=== PATIENT | female | born 1970 | race Caucasian/White ===

== ENCOUNTER 2021-07-26 00:30 | Day surgery (SDC) | payer OTHER, SELFPAY ==
[2021-07-14 11:59] VITALS: BMI 29.2
[2021-07-26 10:09] VITALS: BP 109/83; PULSE 92; RESP 18; TEMP 37.1; O2SAT 100; BMI 29.5
[2021-07-26] MEDS: LACTATED RINGERS 1,000 ML 150 ML IV CONT (10:20)
--- NOTE | 2021-07-26 10:43 | P.PNAN_ITS ---
Anes - Initial Pre Proc Eval Procedure: Operation Date: 07/26/21 11:30 Proposed Procedures p Screening Colonoscopy - Keenan Feliz MD Date/Time: 07/26/21 10:43 Surgeon: Keenan Feliz MD Pre Op Diagnosis: neoplasm screeing Patient Data Age: 50 Gender: F Height: 1.68 m Weight: 83 kg Last Vital Signs Temp 98.8 F 07/26/21 10:09 Pulse 92 07/26/21 10:09 Resp 18 07/26/21 10:09 BP 109/83 07/26/21 10:09 Pulse Ox 100 07/26/21 10:09 Allergies Allergy/AdvReac Type Severity Reaction Status Date / Time No Known Allergies Allergy Mild Verified 07/26/21 10:08 Home Medications Medication Instructions Recorded Confirmed Type losartan 50 mg PO DAILY 07/14/21 07/14/21 History multivit with min-folic acid 1 tablet PO DAILY 07/14/21 07/14/21 History [Adult One Daily Multivitamin] trazodone 100 mg PO HS 07/14/21 07/14/21 History Patient hx anesthesia problems: none Family hx anesthesia problems: none [facility] Past Medical History Medical History (Updated 07/26/21 @ 10:42 by Denton Deras MD) Anxiety Depression Hypertension Social History Social History Smoking status: Never smoker Alcohol intake: current Drinks per week: 3 Living arrangements: with family Spiritual care concerns: No Anes - Eval Final PreProcedure Day of Procedure 07/26/21 10:43 Patient weight: overweight Heart: regular rate and rhythm Lungs: clear to auscultation Airway: Mallampati scale class II Neurological: alert and oriented Last oral intake: >/= 8 hours ASA classification: II Emergent: no Anesthetic plan: proceed Anesthesia type and monitoring: general GIVS and standard monitoring Informed Consent: The patient's anesthetic plan and its attendant risks and benefits were discussed with the patient/family/POA. Questions were solicited and answers provided to the satisfaction of the patient/family/POA.
--- NOTE | 2021-07-26 10:55 | WPDGICN ---
Assessment and Plan Assessment and plan (1) Family history of colonic polyps: Code(s): Z83.71 - Family history of colonic polyps Status: Acute Assessment and Plan: Patient has a family history of colon polyps in her father. Plan is for screening colonoscopy now and consider this at 5 year intervals in the future. GI Consult Note Consult date/time: 07/26/21 10:55 HPI: Cara Omer is a 50 year old female Presents for screening colonoscopy. Patient reports that her weight appetite and bowel movements are normal. Patient denies abdominal pain. She has had no bleeding. Family history is significant that her father had colon polyps. Patient presents today for neoplasia screening. Review of Systems Review of Systems: All systems reviewed & are unremarkable except as noted in HPI and below PMFSH Past Medical History Medical History (Updated 07/26/21 @ 10:57 by Keenan Feliz MD) Anxiety Depression Hypertension Social History Social History Smoking status: Never smoker Alcohol intake: current Drinks per week: 3 Living arrangements: with family Spiritual care concerns: No Meds Home Medications and Allergies Home Medications Medication Instructions Recorded Confirmed Type losartan 50 mg PO DAILY 07/14/21 07/14/21 History multivit with min-folic acid 1 tablet PO DAILY 07/14/21 07/14/21 History [Adult One Daily Multivitamin] trazodone 100 mg PO HS 07/14/21 07/14/21 History Allergies Allergy/AdvReac Type Severity Reaction Status Date / Time No Known Allergies Allergy Mild Verified 07/26/21 10:08 Vital Signs Vital Signs - 24 hr 07/26/21 10:09 Temperature 98.8 F Pulse Rate 92 Respiratory Rate 18 Blood Pressure 109/83 Pulse Oximetry 100 Exam Narrative: Physical exam reveals patient be alert. Vital signs stable. HEENT exam is unremarkable. Patient is anicteric. Lungs are clear to auscultation and percussion. Heart is without murmur or extra sounds. Abdominal exam bowel sounds are present soft nontender with no organomegaly. Digital external rectal exam is normal.
[2021-07-26 12:12] VITALS: BP 97/52; PULSE 73; RESP 18; O2SAT 99
[2021-07-26 12:22] VITALS: BP 90/58; PULSE 79; RESP 24; O2SAT 100
[2021-07-26 12:32] VITALS: BP 103/64; PULSE 69; RESP 18; O2SAT 100
== END 2021-07-26 12:42 | disposition home or self-care (01) ==
PROVIDERS: PCP Nurse Practitioner Adult Health; Visit Provider Internal Medicine Gastroenterology
PROC: 0DJD8ZZ Inspection of Lower Intestinal Tract, Via Natural or Artificial Opening Endoscopic (ICD-10-PCS; CPT 45378; principal; 2021-07-26 11:30)
DX: Z12.11 Encounter for screening for malignant neoplasm of colon (principal); K64.8 Other hemorrhoids; Z83.71 Family history of colonic polyps; I10 Essential (primary) hypertension; F41.8 Other specified anxiety disorders
CPT/HCPCS: 45378; J2001; J2704; J7120

== ENCOUNTER 2024-04-03 08:04 | Emergency (ER) | payer OTHER, SELFPAY ==
[2024-04-03 08:14] VITALS: BP 107/80; PULSE 75; RESP 18; TEMP 36.4; O2SAT 100
--- NOTE | 2024-04-03 08:20 | ED.EAR ---
HPI - Ear Problem General Chief complaint: Ear Stated complaint: lt ear pain Time Seen by Provider: 04/03/24 08:20 Source: patient Mode of arrival: ambulatory Limitations: no limitations History of Present Illness HPI Narrative: 53 y/o female presented for c/o left ear pain x2 days and bloody drainage since yesterday. States the ear pain started while in [place] [employer] The bloody drainage started last night after air travel home. Continues to have bloody drainage today and decreased hearing. Denies tinnitus, dizziness, n/v/d/f/c. Used otocare drops from the [place] x2 days (clotrimazole, lidocaine, beclomethasone, and chloramphenicol). MD Complaint: ear pain Related Data Home Medications Medication Instructions Recorded Confirmed losartan 50 mg tablet 50 mg PO DAILY 07/14/21 07/14/21 multivitamin with minerals-folic 1 tablet PO DAILY 07/14/21 07/14/21 acid 0.4 mg tablet trazodone 100 mg tablet 100 mg PO HS 07/14/21 07/14/21 alprazolam 0.5 mg tablet mg 04/03/24 latanoprost 0.005 % eye drops drp 04/03/24 Allergies Allergy/AdvReac Type Severity Reaction Status Date / Time No Known Allergies Allergy Mild Verified 04/03/24 08:15 Review of Systems Review of Systems: CONSTITUTIONAL: Denies malaise, chills, or fever. EYES: Denies visual changes, redness, or discharge. ENT: Denies rhinorrhea, congestion, sinus pain, sore throat. Reports left ear pain and drainage CARDIOVASCULAR: Denies chest pain, palpitations, or edema. RESPIRATORY: Denies cough or dyspnea. GASTROINTESTINAL: Denies abdominal pain, nausea, vomiting, diarrhea SKIN: Denies rash or itching. NEUROLOGIC: Denies headache. All systems reviewed & are unremarkable except as noted in HPI and below PMFSH Past Medical History Medical History Anxiety Depression Hypertension Social History Social History Smoking status: Never smoker Alcohol intake: current Drinks per week: 3 Living arrangements: with family Spiritual care concerns: No Comments At time of signature, agree with nursing past medical, surgical, social and family history. There is no relevant family history pertinent to the presenting complaint Exam Narrative: GENERAL: Appears in pain, in no acute distress. ENT: Nares clear. Mucous membranes moist. Right TM pearly ortiz with dull light reflex; left TM unable to visualize due large amount bloody drainage in canal; core machine tender, with left tragal tenderness. Oropharynx not erythematous without lesions. NECK: Supple. No lymphadenopathy CHEST: Clear to auscultation, breath sounds equal. SKIN: Warm, dry NEURO: Alert and oriented x3. PSYCH: Normal mood and affect Course Course Emergency Course: Patient is aware of diagnosis, understands and agrees to treatment plan. Anticipatory guidance given. Patient agrees to follow-up as directed and is aware of reasons to seek care at the emergency department. Portions of this record may have been created with voice recognition software Level of Care: Express Care Visit Vital Signs Vital signs: Vital Signs Temperature 97.5 F L 04/03/24 08:14 Pulse Rate 75 04/03/24 08:14 Respiratory Rate 18 04/03/24 08:14 Blood Pressure 107/80 04/03/24 08:14 Pulse Oximetry 100 04/03/24 08:14 Oxygen Delivery Room Air 04/03/24 08:14 Temperature 97.5 F L 04/03/24 08:14 Pulse Rate 75 04/03/24 08:14 Respiratory Rate 18 04/03/24 08:14 Blood Pressure 107/80 04/03/24 08:14 Pulse Oximetry 100 04/03/24 08:14 Oxygen Delivery Room Air 04/03/24 08:14 Reviewed Medical Decision Making [facility] Narrative Medical decision making narrative: Pt presented with left ear pain x2 days and bloody drainage since yesterday. Unable to visualize TM, suspect TM rupture. Contacted Dr Perez for f/u, he recommends Ci
== END 2024-04-03 08:51 | disposition home or self-care (01) ==
PROVIDERS: Emergency Provider Nurse Practitioner Family
DX: H92.02 Otalgia, left ear (principal); I10 Essential (primary) hypertension; F32.A Depression, unspecified
CPT/HCPCS: 99213; G0463

== ENCOUNTER 2024-05-21 09:24 | Outpatient (CLI) | payer OTHER, SELFPAY ==
[2024-05-21 20:14] LABS: Appearance Urine Clear (Clear); Bacteria Urine None Seen /hpf; Bilirubin Urine Negative (Negative); Blood Urine Negative (Negative); Color Urine Yellow (Yellow); Glucose Urine UA Negative (Negative); Ketones Urine Negative (Negative); Leukocyte Esterase Ur Trace LEU/UL (Negative); Nitrate Urine Negative (Negative); Non Pathogenic Casts 0-2; Protein Urine Negative (Negative); RBC Urine 0-2 /hpf (0-2); Specific Grav Ur 1.005 (1.001-1.035); Squamous Epithelial Cell Urine None Seen /hpf (Few); Urobilinogen Urine 0.2 mg/dL (<2.0); WBC Urine 0-5 /hpf (0-3)
[2024-05-21 20:22] LABS: Add Urine Microscopic? YES
== END 2024-05-21 09:25 | disposition home or self-care (01) ==
LOC: ANHBWCLAB 09:25
PROVIDERS: PCP Nurse Practitioner Adult Health; Visit Provider Nurse Practitioner Adult Health
DX: R39.9 Unspecified symptoms and signs involving the genitourinary system (principal)
CPT/HCPCS: 81001; 87077; 87086; 87147; 87181; 87186

== ENCOUNTER 2024-11-24 07:51 | Outpatient (CLI) | payer OTHER, SELFPAY ==
--- NOTE | ~2024-11-24 | XR_ITS ---
XR abdomen/kub 1V 11/24/2024 08:10 INDICATION: Hematuria TECHNIQUE: KUB COMPARISON: None FINDINGS: Bowel gas pattern is normal. Moderate colonic fecal loading. There is no evidence of free a ir, mass, organomegaly, ascites or obstruction. No abnormal calculi are seen. The bones appear inta ct. IMPRESSION: 1: No acute abdominal abnormality identified. Reviewed, dictated and finalized at location [facility]. [facility]
[2024-11-24 20:01] LABS: Add Urine Microscopic? NO; Appearance Urine Clear (Clear); Bilirubin Urine Negative (Negative); Blood Urine Negative (Negative); Color Urine Yellow (Yellow); Glucose Urine UA Negative (Negative); Ketones Urine Negative (Negative); Leukocyte Esterase Ur Negative LEU/UL (Negative); Nitrate Urine Negative (Negative); Protein Urine Negative (Negative); Specific Grav Ur 1.019 (1.001-1.035); Urobilinogen Urine 0.2 mg/dL (<2.0)
[2024-11-24 20:20] LABS: Alanine Aminotransferase 38 U/L (6-35); Albumin Level 4.6 g/dL (3.5-5.1); Alkaline Phosphatase 65 U/L (38-126); Anion Gap 7 mmol/L (4-12); Aspartate Amino Transferase 42 U/L (14-36); Bilirubin,Total 0.6 mg/dL (0.2-1.3); Blood Urea Nitrogen 19 mg/dL (7-17); Calcium 9.3 mg/dL (8.4-10.2); Carbon Dioxide 29 mmol/L (22-30); Chloride 103 mmol/L (98-107); Cholesterol 201 mg/dL (0-200); Estimated Glomerular Filt Rate > 60; Glucose 92 mg/dL (65-110); HDL Direct 86 mg/dL; Potassium 4.7 mmol/L (3.4-5.0); Sodium 139 mmol/L (137-145); Triglycerides 77 mg/dL (<150)
[2024-11-24 20:31] LABS: LDL Cholesterol Direct 100 mg/dL
--- OUTSIDE RECORDS SUMMARY | 2024-11-27 11:39 | XMS_ITS | Continuity of Care Document ---
Author Organization [facility] Address [address] [place] [address] Phone Care Team Providers Care Second Baller Name Role Phone Roman OD, Keenan Unavailable Unavailable Advance Directives Directive Yes / No Effective Date File Name No Information Encounters Encounter Description Practice Location Reason(s) For Visit Diagnoses Date Provider Providers Copied on Encounter [facility], [address], [place], [place], [id number], [place] tel:[phone] [facility] No Information 0-200 0 Roman OD Keenan. [address] , [address], [place], [address], [place]. tel:[phone] Family History Family Member Type Diagnosis Age At Onset No Information Payers Payer name Insurance type Covered alliance party ID Authoriza tion(s) No Information Social History Type Description Quantity Date Captured Comments Sex Female Smoking Status No Information Chief Complaint And Reason For Visit No Information Reason For Referral Reason For Referral No Information History Of Present Illness Encounter Date Complaint History Of Prese nt Illness No Information Functional Status Date Functional Assessmen t No Information Instructions Date Instruction Additional Infor mation No Information Assessments Type Assessment Date No Information Patient Care Teams Name Effective Dates (start - stop) Status Members No Information
== END 2024-11-24 07:52 | disposition home or self-care (01) ==
LOC: ANHBWCLAB 07:53
PROVIDERS: PCP Nurse Practitioner Adult Health; Visit Provider Nurse Practitioner Adult Health
DX: R39.9 Unspecified symptoms and signs involving the genitourinary system (principal); I10 Essential (primary) hypertension; R31.9 Hematuria, unspecified
CPT/HCPCS: 36415; 74018; 80053; 80061; 81003; 87086

== ENCOUNTER 2025-03-30 09:21 | Emergency (ER) | payer OTHER, SELFPAY ==
--- OUTSIDE RECORDS SUMMARY | 2025-03-30 09:22 | XMS_ITS | Continuity of Care Document ---
Author Organization [facility] Address [address] [place] [address] Phone Care Team Providers Care Filling Separator Name Role Phone Roman OD, Keenan Unavailable Unavailable Advance Directives Directive Yes / No Effective Date File Name No Information Encounters Encounter Description Practice Location Reason(s) For Visit Diagnoses Date Provider Providers Copied on Encounter [facility], [address], [place], [place], [id number], [place] tel:[phone] [facility] No Information 0-200 0 Roman OD Keenan. [address] , [address], [place], [address], [place]. tel:[phone] Family History Family Member Type Diagnosis Age At Onset No Information Payers Payer name Insurance type Covered democrat ID Authoriza tion(s) No Information Social History [...]
--- OUTSIDE RECORDS SUMMARY | 2025-03-30 09:22 | XMS_ITS | Data Portability ---
Author Organization [facility] [place], Main Office Address [address] [place] [address] Assessment No assessment recorded. Plan of Treatment Reminders Order Date Submit Date Provider Last Modified By Organization Details Last Modified Time Details Appointments None recorded. Lab urinalysis, dipstick [address] [place], [place], [address], 4 17:20:45 culture, urine + sensitivity 2023 024 [facility], [address] [place], [address], 4 07:59:32 lipid panel, serum 2022 023 [email or web address] [facility], [address], [address], 3 08:57:05 CMP, serum or plasma 2022 023 [email or web address] [facility], [address], [address], 3 08:57:05 urinalysis, dipstick 2022 023 [email or web address] [address] [place], [place], [address], 3 12:31:14 culture, urine 2022 023 [facility], [address], [place], [address], 3 11:37:53 Referral None recorded. Procedures None recorded. Surgeries None recorded. Imaging None recorded. Medication Orders fluticasone propionate 50 mcg/actuati on nasal spray,suspe nsion 2023 024 [facility] #[id number], [address] [facility], [place], [place], [id number], 4 20:26:38 amoxicillin 500 mg capsule 2023 024 [facility] #[id number], [address] [facility], [place], [place], [id number], 4 09:25:47 sulfamethox azole 800 mg-trimetho prim 160 mg tablet 2023 024 [email or web address] #[id number], [address] [facility], [place], [id number], 4 08:56:36 Wegovy 0.25 mg/0.5 mL subcutaneou s pen injector 2022 023 [email or web address] 3 [facility] #[id number], [address] [facility], [place], [place], [id number], 3 08:26:13 Patient TargetsNo targets recorded. Patient InstructionsNo instructions recorded. Reason for Referral None Reported. Results Created Date Observation Date Name Description Value Unit Range Abnormal Flag Note LastModifiedBy Organization Detail LastModifiedTime 03/12/2003/12/2023 urina lysis , dipst ick Leukocytes (reference range: negative carmen/ l) Negati ve Not Available [facility] [address] [place], [place], [address], 03/12/2023 10:38:34 03/12/20 03/12/2023 urina lysis , dipst ick Nitrite (reference rage: negative mg/dl) negati ve Not Available [address] [place], [place], [address], 03/12/2023 10:38:34 03/12/20 23 03/12/2023 urina lysis , dipst ick Urobilinogen (reference range: 0.2-1 mg/dl) 0.2 Not Available [address] [place], [place], [address], 03/12/2023 10:38:34 03/12/20 23 03/12/2023 urina lysis , dipst ick Protein (reference range: negative mg/dl) Negati ve Not Available [address] [place], [place], [address], 03/12/2023 10:38:34 03/12/20 23 03/12/2023 urina lysis , dipst ick pH (reference range: 5-7) 7.5 Not Available [address] [place], [place], [address], 03/12/2023 10:38:34 03/12/20 23 03/12/2023 urina lysis , dipst ick Blood (reference range: negative Antoni/ l) Negati ve Not Available [address] [place], [place], [address], 03/12/2023 10:38:34 03/12/2003/12/2023 urina lysis , dipst ick Specific [place] (reference range: 1.005-1.030) 1.030 Not Available [address] [place], [place], [address], 03/12/2023 10:38:34 03/12/20 23 03/12/2023 urina lysis , dipst ick Ketone (reference range: negative mg/dl) Negati ve Not Available [address] [place], [place], [address], 03/12/2023 10:38:34 03/12/20 23 03/12/2023 urina lysis , dipst ick Bilirubin (reference range: negative mg/dl) Negati ve Not Available [address] [place], [place], [address], 03/12/2023 10:38:34 03/12/20 23 03/12/2023 urina lysis , dipst ick Glucose (reference range: negative mg/dl) Negati ve Not Available [address] [place], [place], [address], 03/12/2023 10:38:34 03/12/20 23 03/12/2023 urina lysis , dipst ick Appearance Clear Not Available [address] [place], [place], [address], 03/12/2023 10:38:34 03/12/20 23 03/12/2023 urina lysis , dipst ick Color Yellow Not Available [address] [place], [place], [address], 03/12/2023 10:38:34 06/22/20 23 06/22/2023 LIPID PANEL cholesterol 195 mg/dL 140-19 9 NIH FARSHAD NSUS RECOM MENDA TION FOR PARISH STERO L: ADULT CHILD LOW RISK: <200 <170 BORDE RLINE : <200- 239 ----- HIGH RISK: >240 >200 Not Available [facility] (Lab) [address] [place], [address], 06/22/2023 13:49:17 06/22/20 23 06/22/2023 LIPID PANEL triglyceride s 84 mg/dL 0-150 NIH FARSHAD NSUS REPOR T RECOM MENDA TION FOR TRIGL YCERI MATIAS: ADULT CHILD LOW RISK: <150 ----- BODER LINE: 150-1 99 ----- HIGH RISK: >200 ----- Not Available [facility] (Lab) [address] [place], [address], 06/22/2023 13:49:17 06/22/20 23 06/22/2023 LIPID PANEL HDL cholesterol 79 mg/dL 40- Not Available [facility] (Lab) [address] [place], [address], 06/22/2023 13:49:17 06/22/20 23 06/22/2023 LIPID PANEL LDL cholesterol, calculated 99 mg/dL 0-130 NIH FARSHAD NSUS REPOR T RECOM MENDA TIONS FOR LDL: ADULT CHILD LOW RISK <130 <110 (OPTI MAL LDL) <100 ----- BORDE RLINE : 130-1 59 ----- HIGH RISK: >160 >130 A TRIGL YCERI DE RESUL T >400 INVAL IDATE S THE CALCU LATIO N FOR LDL FRACT IONAT ION - THE LDL RESUL T WILL NOT BE REPOR JOSE. Not Available [facility] (Lab) [address] [place], [address], 06/22/2023 13:49:17 06/22/20 23 06/22/2023 COMPR EHENS GERTRUDE METAB OLIC PANEL sodium 138 mmol/ L 137-14 5 Not Available [facility] (Lab) [address] [place], [address], 06/22/2023 13:49:29 06/22/20 23 06/22/2023 COMPR EHENS GERTRUDE METAB OLIC PANEL potassium 4.4 mmol/ L 3.5-5. 1 Not Available [facility] (Lab) [address] [place], [address], 06/22/2023 13:49:29 06/22/20 23 06/22/2023 COMPR EHENS GERTRUDE METAB OLIC PANEL chloride 105 mmol/ L 98-107 Not Available [facility] (Lab) [address] [place], [address], 06/22/2023 13:49:29 06/22/20 23 06/22/2023 COMPR EHENS GERTRUDE METAB OLIC PANEL carbon dioxide 27 mmol/ L 22-30 Not Available [facility] (Lab) [address] [place], [address], 06/22/2023 13:49:29 06/22/20 23 06/22/2023 COMPR EHENS GERTRUDE METAB OLIC PANEL anion gap 10.4 mmol/ L 14-22 low Not Available [facility] (Lab) [address] [place], [address], 06/22/2023 13:49:29 06/22/20 23 06/22/2023 COMPR EHENS GERTRUDE METAB OLIC PANEL glucose 89 mg/dL 70-99 Not Available [facility] (Lab) [address] [place], [address], 06/22/2023 13:49:29 06/22/20 23 06/22/2023 COMPR EHENS GERTRUDE METAB OLIC PANEL BUN 15 mg/dL 8-19 Not Available [facility] (Lab) [address] [place], [address], 06/22/2023 13:49:29 06/22/20 23 06/22/2023 COMPR EHENS GERTRUDE METAB OLIC PANEL creatinine 0.82 mg/dL 0.66-1 .25 Not Available [facility] (Lab) [address] [place], [address], 06/22/2023 13:49:29 06/22/20 23 06/22/2023 COMPR EHENS GERTRUDE METAB OLIC PANEL GFR >60 Refer ence Range : Spring ge GFR Healt hy Adult : >60 mL/mi n/1.7 3 m2 Chron ic Kidne y Disea se: 15-60 mL/mi n/1.7 3 m2 Kidne y Failu re: <15/m L/min /1.73 m2 www.n iddk. nih.g ov The MDRD study equat ion has not been valid ated in child erin <18 years of age; pregn ant women ; the elder ly >85 years of age; or in some racia l or ethni c subgr oups, such as Hispa nics. Outsi de the valid ated ashia eters , estim ated GFR is less accur ate, requi ring clini yony judgm ent on a case- by-ca se basis . Clini yony inter preta tion for other races and ages must be made by the clini samson. The MDRD study equat ion has not been valid ated for the evalu ation of serum creat inine relat ed to nutri angel l statu s or medic ation usage . For perso ns <18 years of age, a pedia tric GFR calcu lator is avail able on the [facility] websi te: https ://jay figueredo.minnie no/micky timal s/kdo qi/gf r_cal culat or Not Available [facility] (Lab) [address] [place], [address], 06/22/2023 13:49:29 06/22/20 23 06/22/2023 COMPR EHENS GERTRUDE METAB OLIC PANEL alkaline phosphatase 75 U/L 38-126 Not Available [facility] (Lab) [address] [place], [address], 06/22/2023 13:49:29 06/22/20 23 06/22/2023 COMPR EHENS GERTRUDE METAB OLIC PANEL alanine aminotransfe rase 29 U/L 0-35 Not Available [facility] (Lab) [address] [place], [address], 06/22/2023 13:49:29 06/22/20 23 06/22/2023 COMPR EHENS GERTRUDE METAB OLIC PANEL aspartate aminotransfe rase 35 U/L 15-37 Not Available [facility] (Lab) [address] [place], [address], 06/22/2023 13:49:29 06/22/20 23 06/22/2023 COMPR EHENS GERTRUDE METAB OLIC PANEL bilirubin, total 0.80 mg/dL 0.20-1 .30 Not Available [facility] (Lab) [address] [place], [address], 06/22/2023 13:49:29 06/22/20 23 06/22/2023 COMPR EHENS GERTRUDE METAB OLIC PANEL calcium 8.7 mg/dL 8.4-10 .2 Not Available [facility] (Lab) [address] [place], [address], 06/22/2023 13:49:29 06/22/20 23 06/22/2023 COMPR EHENS GERTRUDE METAB OLIC PANEL total protein 7.4 g/dL 6.3-8. 2 Not Available [facility] (Lab) [address] [place], [address], 06/22/2023 13:49:29 06/22/20 23 06/22/2023 COMPR EHENS GERTRUDE METAB OLIC PANEL albumin 4.5 g/dL 3.4-5. 0 Not Available [facility] (Lab) [address] [place], [address], 06/22/2023 13:49:29 06/22/20 23 06/22/2023 COMPR EHENS GERTRUDE METAB OLIC PANEL globulin 2.9 g/dL 2.6-4. 2 Not Available [facility] (Lab) [address] [place], [address], 06/22/2023 13:49:06/22/2006/22/2023 COMPR EHENS GERTRUDE METAB OLIC PANEL A/G ratio 1.6 ratio 1.0-2. 0 Not Available [facility] (Lab) [address] [place], [address], 06/22/2023 13:49:29 12/03/19 24 12/03/2023 urina lysis , dipst ick Leukocytes (reference range: negative carmen/ l) Trace Not Available [address] [place], [place], [address], 12/03/2023 15:46:52 12/03/19 24 12/03/2023 urina lysis , dipst ick Nitrite (reference rage: negative mg/dl) negati ve Not Available [address] [place], [place], [address], 12/03/2023 15:46:52 12/03/19 24 12/03/2023 urina lysis , dipst ick Urobilinogen (reference range: 0.2-1 mg/dl) 0.2 Not Available [address] [place], [place], [address], 12/03/2023 15:46:52 12/03/19 24 12/03/2023 urina lysis , dipst ick Protein (reference range: negative mg/dl) Negati ve Not Available [address] [place], [place], [address], 12/03/2023 15:46:52 12/03/19 24 12/03/2023 urina lysis , dipst ick pH (reference range: 5-7) 6.0 Not Available [address] [place], [place], [address], 12/03/2023 15:46:52 12/03/19 24 12/03/2023 urina lysis , dipst ick Blood (reference range: negative Antoni/ l) Negati ve Not Available [address] [place], [place], [address], 12/03/2023 15:46:52 12/03/19 24 12/03/2023 urina lysis , dipst ick Specific [place] (reference range: 1.005-1.030) 1.030 Not Available [address] [place], [place], [address], 12/03/2023 15:46:52 12/03/19 24 12/03/2023 urina lysis , dipst ick Ketone (reference range: negative mg/dl) Negati ve Not Available [address] [place], [place], [address], 12/03/2023 15:46:52 12/03/19 24 12/03/2023 urina lysis , dipst ick Bilirubin (reference range: negative mg/dl) Negati ve Not Available [address] [place], [place], [address], 12/03/2023 15:46:52 12/03/19 24 12/03/2023 urina lysis , dipst ick Glucose (reference range: negative mg/dl) Negati ve Not Available [address] [place], [place], [address], 12/03/2023 15:46:52 12/03/19 24 12/03/2023 urina lysis , dipst ick Appearance Clear Not Available [address] [place], [place], [address], 12/03/2023 15:46:52 12/03/19 24 12/03/2023 urina lysis , dipst ick Color Yellow Not Available [facility] [address] [place], [place], [address], 12/03/2023 15:46:52 08/29/20 23 08/29/2023 MAMMO , scree gabe, digit al, bilat eral No observ ation record ed. [email or web address] [facility] [address] [place], [address], 08/29/2023 15:59:52 09/10/20 24 09/09/2024 MAMMO , scree gabe, digit al, bilat eral No observ ation record ed. [email or web address] [address], [address], 09/11/2024 08:09:17 Result Notes None recorded. Problems Name Problem SNOMED Code Status Onset Date Resolution Date Notes Provider Name and Address Organization Details Recorded Time Excessive cerumen in ear canal 410643737 Completed Not Available [facility] 3 08:11:26 Otalgia 55891978 Completed Not Available [facility] 3 08:11:26 Mixed anxiety and depressive disorder 834774963 Active 2020 Not Available [facility] 3 08:11:26 Fluid level behind tympanic membrane Completed Not Available [facility] 3 08:11:26 Weight increased 413673222 Active Not Available [facility] 3 08:11:26 Otitis externa 1930392 Completed Not Available [facility] 3 08:11:26 Vitamin D deficiency 46704785 Active Not Available [facility] 3 08:11:26 Sinusitis 61079460 Completed Not Available [facility] 3 08:11:26 Disorder of vitamin D 756231925 Completed Not Available [facility] 3 08:11:26 Recurrent herpes simplex labialis 020402319 Active Not Available [facility] 3 08:11:26 Abdominal tenderness 39090049 Completed Not Available [facility] 3 08:11:27 Seasonal allergy 811556858 Active Not Available [facility] 3 08:11:27 Past history of gestationa l diabetes mellitus 056784135 Active 2016 Not Available [facility] 3 08:11:27 Cough 71641003 Completed Not Available [facility] 3 08:11:27 Essential hypertensi on 60973869 Active Not Available [facility] 3 08:11:27 Allergic rhinitis 75500369 Active 2019 Not Available [facility] 3 08:11:27 Otitis media 59409144 Completed Not Available [facility] 3 08:11:27 Nasal congestion 51072134 Completed Not Available [facility] 3 08:11:27 Muscle pain 79471713 Completed Not Available [facility] 3 08:11:27 Posterior rhinorrhea 70434650 Active Not Available [facility] 3 08:11:27 Fatigue 80931976 Completed Not Available [facility] 3 08:11:27 Anxiety 79941573 Active 2022 Sophie Holden MD [address] [place] [address], [address] , [facility] 3 14:37:23 Obesity 421643268 Active 2022 Sophie Holden MD [address], [place], [address] , [facility] 3 08:47:43 Acute urinary tract infection 020116803 Active 2022 FREDIS Arevalo, [facility] 3 10:38:29 Overweight 276693673 Active 2022 Sophie Holden MD [address], [place], [address] , [facility] 3 09:40:36 Persistent insomnia 635416355 Active 2022 Sophie Holden MD [address] [facility], [place], [address] , [facility] [facility] [employer] 3 21:43:16 Herpes labialis 6269363 Active 2022 ALLISON Chu [address] [facility], [place], [address] , [facility] [facility] 3 09:30:15 Otitis media 16374236 Active 2022 ALLISON Chu [address] [facility], [facility] [address], [place], [address] , [email or web address] 3 10:14:14 Problem Notes None recorded. Procedures Surgical History Date Name Laterality Status Provider Name and Address Organization Details Recorded Time other completed Not Available [facility] 11/2022 08:07:27 other completed Not Available [facility] 11/2022 08:07:27 Imaging Results None recorded. Procedure Notes None recorded. Medical Equipment None Reported. Allergies Allergen ID Allergen Name Allergen Category Reaction Reaction Severity Criticality Documentation Date Start Date Code Code System Note Provider Name and Address Organization Details Recorded Time 57784 Macrobid medicatio n rash moderate Not available 01/03/2023 79589 1 RxNorm Not Available [facility] 3 08:16:09 Medications Name Sig Start Date Stop Date Status Note LastModified by Organization Details LastModified Time losartan 50 mg tablet TAKE 1 TABLET BY MOUTH EVERY DAY DIRECTED active Not Available Not Available No t Available cyclobenzap rine 10 mg tablet 02/18 completed Not Available Not Available Not Available amoxicillin 500 mg capsule TAKE 2 CAPSULES BY MOUTH EVERY 12 HOURS FOR 10 DAYS active Not Available Not Available No t Available latanoprost 0.005 % eye drops INSTILL 1 DROP IN EACH EYE ONCE DAILY AT BEDTIME active Not Available Not Available No t Available ketoconazol e 2 % shampoo active Not Available Not Available Not Available trazodone 50 mg tablet TAKE 1 TABLET BY MOUTH EVERY DAY AT BEDTIME active Not Available Not Available No t Available azithromyci n 250 mg tablet TAKE 2 TABLETS (500 MG) BY ORAL ROUTE ONCE DAILY FOR 1 DAY THEN 1 TABLET (250 MG) BY ORAL ROUTE ONCE DAILY FOR 4 DAYS 07/19 completed Not Available Not Available Not Available ibuprofen 800 mg tablet TAKE 1 TABLET BY MOUTH THREE TIMES DAILY NEEDED FOR PAIN active Not Available Not Available No t Available benzonatate 200 mg capsule Take 1 capsule 3 times a day by oral route. active Not Available Not Available No t Available valacyclovi r 1 gram tablet take 2 tablets by mouth twice daily for 1 day as needed for cold sore. repeat as needed. 2024 active Not Available Not Available Not Avai lable tolterodine ER 4 mg capsule,ext ended release 24 hr TK ONE C PO D 02/18 completed Not Available Not Available Not Available Celestone Soluspan 6 mg/mL suspension for injection active ND# [id number] -[id number] Not Available Not Available Not Available meloxicam 15 mg tablet TK 1 T PO QD FOR 2 WEEKS active Not Available Not Available No t Available Depo-Medrol 20 mg/mL suspension for injection active ND# [id number] -[id number] Not Available Not Available Not Available promethazin e 6.25 mg-codeine 10 mg/5 mL syrup Take 5 mL twice a day by oral route as needed for 10 days. active Not Available Not Available No t Available ciprofloxac in 250 mg tablet TAKE 1 TABLET BY MOUTH EVERY 12 HOURS FOR 5 DAYS active Not Available Not Available No t Available trimethopri m 100 mg tablet TAKE 1 TABLET BY MOUTH NEEDED 05/04 completed Not Available Not Available Not Available ciprofloxac in 500 mg tablet Take 1 tablet every 12 hours by oral route for 5 days. 05/03 completed Not Available Not Available Not Available sulfamethox azole 800 mg-trimetho prim 160 mg tablet TAKE 1 TABLET BY MOUTH TWICE DAILY FOR 10 DAYS 02/28 completed Not Available Not Available Not Available tramadol 50 mg tablet TK 1 T PO Q 6 TO 8 H PRN active Not Available Not Available No t Available Kenalog 40 mg/mL suspension for injection active ND#: [id number] 20 Not Available Not Available Not Available cefadroxil 500 mg capsule TAKE 1 CAPSULE BY MOUTH TWICE DAILY WITH FOOD 05/03 completed Not Available Not Available Not Available Tessalon Perles 100 mg capsule Take 1 capsule every 4-6 hours by oral route as directed for 15 days. 06/03 completed Not Available Not Available Not Available terbinafine HCl 250 mg tablet TK 1 T PO D 12/30 completed Not Available Not Available Not Available alprazolam 0.5 mg tablet TAKE 1 TABLET BY MOUTH TWICE DAILY NEEDED FOR ANXIETY active Not Available Not Available No t Available amoxicillin 875 mg tablet TAKE 1 TABLET BY MOUTH EVERY 12 HOURS FOR 7 DAYS active Not Available Not Available No t Available trazodone 100 mg tablet TAKE 1 TABLET BY MOUTH EVERY DAY 2024 active Not Available Not Available Not Avai lable hydrocodone 7.5 mg-acetamin ophen 325 mg tablet TK 1 T PO Q 6 H PRF PAIN active Not Available Not Available No t Available cephalexin 500 mg capsule TK ONE C BID FOR 7 DAYS 02/18 completed Not Available Not Available Not Available cyanocobala min (vit B-12) 1,000 mcg/mL injection solution Inject 1 mL every month by intramusc ular route. active [facility]# [id number] Not Available Not Available Not Available losartan 25 mg tablet Take 1 tablet every day by oral route for 30 days. 08/08 completed Not Available Not Available Not Available montelukast 10 mg tablet Take by oral route for 90 days. active Not Available Not Available No t Available fluocinonid e 0.05 % topical solution APPLY 1 ML TO SCALP EVERY NIGHT FOR 2 WEEKS DIRECTED 05/03 completed Not Available Not Available Not Available methylpredn isolone 4 mg tablets in a dose pack FPD 02/18 completed Not Available Not Available Not Available fluticasone propionate 50 mcg/actuati on nasal spray,suspe nsion SHAKE LIQUID AND USE 2 SPRAYS IN EACH NOSTRIL EVERY DAY IN THE MORNING active Not Available Not Available No t Available loratadine 10 mg tablet TAKE 1 TABLET BY MOUTH EVERY DAY IN THE MORNING active Not Available Not Available No t Available amoxicillin 875 mg-potassiu m clavulanate 125 mg tablet TAKE 1 TABLET BY MOUTH EVERY 12 HOURS WITH MEALS FOR 10 DAYS active Not Available Not Available No t Available ciprofloxac in 0.3 %-dexametha sone 0.1 % ear drops,suspe nsion SHAKE LIQUID AND INSTILL 5 DROPS INTO LEFT EAR THREE TIMES DAILY FOR 7 DAYS active Not Available Not Available No t Available nitrofurant oin monohydrate /macrocryst als 100 mg capsule Take 1 capsule every 12 hours by oral route for 7 days. 04/16 /2019 completed Not Available Not Available Not Available Saxenda 3 mg/0.5 mL (18 mg/3 mL) subcutaneou s pen injector INJECT 0.6 MG SUBCUTANE OUSLY DAILY FOR 1 WEEK, THEN INCREASE BY 0.6 MG WEEKLY UNTIL REACHING 3 MG 05/04 completed Not Available Not Available Not Available BD Zakiya 2nd Gen Pen Needle 32 gauge x 5/32 USE DIRECTED active Not Available Not Available No t Available BinaxNOW COVID-19 Ag Self Test kit TEST DIRECTED TODAY 02/26 completed Not Available Not Available Not Available Wegovy 0.25 mg/0.5 mL subcutaneou s pen injector ADMINISTE R 0.5 ML UNDER THE SKIN EVERY WEEK active Not Available Not Available No t Available Wegovy 0.5 mg/0.5 mL subcutaneou s pen injector INJECT 0.5MG UNDER THE SKIN EVERY WEEK 02/28 completed Not Available Not Available Not Available Vitals Date Recorded Body height Provider Name an d Address Organization Details Last Updated DateTime 12/03/2023 167.64 cm Becki Peraza [facility] [employer] [facility] 12/03/2023 15:34:21 Date Recorded Body height Body mass index (BMI) Body weight Body temperature Respiratory rate Heart rate Oxygen saturation Oxygen saturation in Arterial blood by Pulse oximetry Systolic And Diastolic Provider Name and Address Organization Details Last Updated DateTime 4 167.64 cm 29.5 kg/m2 76900.4 g 97.9 [degF] 16 /min 71 /min 98 % 98 % 104/80 mm[Hg] Berta Monterroso RN [facility] [employer] [facility] 4 08:58:16 Date Recorded Body height Provider Name an d Address Organization Details Last Updated DateTime 03/12/2023 167.64 cm FREDIS Arevalo [facility] [employer] [facility] 03/12/2023 10:36:33 Date Recorded Body height Body mass index (BMI) Body weight Body temperature Heart rate Oxygen saturation Oxygen saturation in Arterial blood by Pulse oximetry Systolic And Diastolic Provider Name and Address Organization Details Last Updated DateTime 3 167.64 cm 28.2 kg/m2 62699.6 6 g 97.7 [degF] 76 /min 99 % 99 % 102/80 mm[Hg] Nora Wharton , [facility] 09:28:50 Social History Question Answer Notes LastModified by [employer] Details LastModified Time Tobacco Smoking Status Never Smoker Janelle denton, [facility] 05/04/2023 09:23:22 What Is Your Level Of Caffeine Consumption? Moderate [id number] Information not available 01/03/2023 How Much Tobacco Do You Chew? None [id number] Information not available 01/03/2023 Which Illicit Or Recreational Drugs Have You Used? None [email or web address] Information not available 05/04/2023 What Was The Date Of Your Most Recent Tobacco Screening? 12/31/2017 [email or web address] Information not available 05/04/2023 Sex: Unknown Functional Status Question Answer Note LastModified by [employer] Details LastModified Time What is your level of alcohol consumption? 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 Occasional [id number] Information not available 01/03/2023 Mental Status None recorded. Family History Relationship Description Onset Age of this Age Resolved Age Notes LastModified by Organization Details LastModified Time Father Hypertensive disorder [id number] Not available 01/03/2023 08:07:29 Father Arthritis [email or web address] Not availab le 02/29/2024 08:53:54 Mother Arthritis Not availab le 02/29/2024 08:53:54 Medical History Condition Response URINARY/BLADDER/KIDNEY PROBLEMS Y HYPERTENSION Y Gynecological HistoryNo gynecological history recorded. Obstetrics History GPAL:G 0 P 0 0 0 0 Immunizations Vaccine Type Date Status Note Provider Nam e and Address Organization Details Recorded Time Influenza, split virus, quadrivalent, preservative 7 completed Not Available [facility] 01/03/2023 08:16:02 Tdap 7 completed Not Available [facility] 01/03/2023 08:16:02 Influenza, split virus, trivalent, preservative 6 completed Not Available [facility] 01/03/2023 08:16:02 Influenza, split virus, trivalent, preservative 5 completed Not Available [facility] 01/03/2023 08:16:02 Influenza, split virus, trivalent, preservative 4 completed Not Available [facility] 01/03/2023 08:16:02 Influenza, split virus, trivalent, preservative 3 completed Not Available [facility] 01/03/2023 08:16:02 Past Encounters Encounter ID Performer Location Encounter Start Date Encounter Closed Date Diagnosis/Indication Diagnosis SNOMED-CT Code Diagnosis ICD10 Code Diagnosis Note [id number] Sophie Holden MD [facility] [address] [place] [address] [place] [address] 05/03/2021 00:00:00 05/03/2021 12:14:26 [id number] Sophie Holden MD [facility] [place] [address] [place] [address] [place] [address] 05/03/2022 00:00:00 05/03/2022 12:07:39 [id number] Sophie Holden MD [facility] [place] [address] [place] [address] [place] [address] 03/12/2023 10:32:44 03/12/2023 10:47:35 Acute urinary tract infection 368279486 N39.0 [id number] Sophie Holden MD [facility] [place] [address] [place] [address] [place] [address] 05/04/2023 09:22:04 05/04/2023 09:51:08 Adult health examination 569554727 Z00.00 Hyperlipid emia screening 982799431 Z13.220 Overweight 219566362 E66 .3 [id number] Rianna Avilez NP [place] [address] [place] [address] 06/22/2023 09:02:14 06/22/2023 10:00:37 [id number] Sophie Holden MD [facility] [place] [address] [facility] [place] [address] 12/03/2023 15:23:23 12/18/2023 10:54:43 Acute urinary tract infection 458915910 N39.0 [id number] Rolf Figueroa MD [facility] [place] [place] [address] [facility] [place] [address] 02/29/2024 08:52:03 02/29/2024 09:54:24 Otitis media 08761537 H66.93 Allergic rhinitis 061774 04 J30.9 Anxiety 94139599 F41.9 Essential hypertension 74451208 I10 Seasonal allergy 4083053 04 J30.2 Vitamin D deficiency 347 46140 E55.9 Overweight 110996246 E66 .3 Health Concerns Section Related Observation LastModified by Organization Detai ls LastModified Time None Recorded Concern Status LastModified by Organization Details LastModified Time None Recorded Advance Directives Directive None Recorded Payers Encounter Date Sequence Insurance Name Policy Number Policy Keyes Covered Member ID Keyes Member ID Guarantor Name 03/12/2023 1 [employer] OPEN [employer]ESS [facility] [id number] [facility] 05/04/2023 1 [employer]ESS [facility] [id number] [facility] 06/22/2023 1 [employer]ESS [facility] [id number] [facility] 12/03/2023 1 [employer] [facility] [id number] [facility] 02/29/2024 1 [employer]ESS [facility] [id number] [facility] Notes Date Note Type Note Provider Name and Address Organization Details Recorded Time 05/04/2023 text/html Here today to establish care. Hx of HTN and anxiety and depression. Here for wellness visit. Tried saxenda and did not like it. Wants to lose weight BMI is 28. She needs BW. UTD with mammogram. Did a colonoscopy last year. Sophie Holden MD [address] [place] [address], [place] [address], [place], [address], [employer] [facility] 05/04/2023 17:23:29 02/29/2024 text/html ears full , no fever ALLISON Chu [address], [facility] [address], [place], [address], [employer] [facility] 03/08/2024 20:27:00 OBGyn Episode No OBEpisode recorded.
--- OUTSIDE RECORDS SUMMARY | 2025-03-30 09:22 | XMS_ITS ---
Author Organization Unknown Medications Medication Instructions Effective Dates (start - stop) Status trazodone hydrochloride 100 MG Oral Tablet - Completed - - Compl eted ciprofloxacin 250 MG Oral Tablet 00:00:00Z - Completed alprazolam 0.5 MG Oral Tablet 2023-11-17 00:00:00Z - Completed trazodone hydrochloride 100 MG Oral Tablet - Completed losartan potassium 50 MG Ora l Tablet - Completed trazodone hydrochloride 100 MG Oral Tablet - Completed alprazolam 0.5 MG Oral Tablet 2023-06-15 00:00:00Z - Completed sulfamethoxazole 800 MG / trimethoprim 160 MG Oral Tablet - Compl eted fluticasone propionate 0.05 MG/ACTUAT Metered Dose Nasal [place] - Co mpleted amoxicillin 500 MG Oral Capsule 2024-02-05 6T00:00:00Z - Completed - - Compl eted alprazolam 0.5 MG Oral Tablet 2023-08-24 00:00:00Z - Completed ibuprofen 800 MG Oral Tablet [id number] 0:00:00Z - Completed amoxicillin 500 MG Oral Capsule 2023-10-06 8T00:00:00Z - Completed trazodone hydrochloride 100 MG Oral Tablet - Completed alprazolam 0.5 MG Oral Tablet 2024-05-21 00:00:00Z - Completed latanoprost 0.05 MG/ML Ophth almic Solution - Completed amoxicillin 500 MG Oral Capsule 2023-11-05 3T00:00:00Z - Completed 0.5 ML semaglutide 0.5 MG/ML Auto-Injector [StyleCaster] - Completed losartan potassium 50 MG Ora l Tablet - Completed losartan potassium 50 MG Ora l Tablet - Completed amoxicillin 875 MG Oral Tablet 2024-04-03 T00:00:00Z - Completed - - Compl eted ciprofloxacin 3 MG/ML / dexamethasone 1 MG/ML Otic Suspension - Completed fluticasone propionate 0.05 MG/ACTUAT Metered Dose Nasal [place] - Co mpleted latanoprost 0.05 MG/ML Ophth almic Solution - Completed alprazolam 0.5 MG Oral Tablet 2024-02-21 00:00:00Z - Completed latanoprost 0.05 MG/ML Ophth almic Solution - Completed losartan potassium 50 MG Ora l Tablet - Completed 0.5 ML semaglutide 1 MG/ML Auto-Injector [StyleCaster] - Completed valacyclovir 1000 MG Oral Tablet 00:00:00Z - Completed Patient Care team information Name Category Status Period Participants - - Proposed period not known -
--- OUTSIDE RECORDS SUMMARY | 2025-03-30 09:22 | XMS_ITS | Referral Summary ---
Author Organization [place] [id number] [facility] Address Critical access hospital[address] [place] [address] Care Team Providers Care Accounting Clerks Supervisor Name Role Phone Aracely Yanez NP Primary Care Provider [phone] Allergies No known active allergies Medications No known medications Active Problems No known active problems Social History Tobacco Use Types Packs/Day Years Used Date Smoking Tobacco: Never Comments Unknown Sex and Gender Information Value Date Recorded Sex Assigned at Not on file Legal Sex Female 8:29 PM INFORMATION AND DATA ARCHITECT ANALYST Gender Identity Not on file Sexual Orientation Not on file Last Filed Vital Signs Vital Sign Reading Time Taken Comments Blood Pressure - - Pulse - - Temperature - - Respiratory Rate - - Oxygen Saturation - - Inhaled Oxygen Concentration - - Weight 74.8 kg (164 lb 15.9 oz) 01/01/2018 2:11 PM INFORMATION AND DATA ARCHITECT ANALYST Height 167.6 cm (5' 6) 01/01/2018 2:11 PM INFORMATION AND DATA ARCHITECT ANALYST Body Mass Index 26.63 01/01/2018 2:11 PM INFORMATION AND DATA ARCHITECT ANALYST Plan of Treatment Not on file Procedures Procedure Name Priority Date/Time Associated Diagnosis Comments SCREENING MAMMOGRAM BILATERAL W AARON Schedule Routine, Read Routine (OP Routine) 09/09/2024 7:16 AM INFORMATION AND DATA ARCHITECT ANALYST Screening mammogram, encounter for from Last 3 Months or Most Recently Relevant to Health Maintenance Results * Screening Mammogram Bilateral W Aaron (09/09/2024 7:16 AM INFORMATION AND DATA ARCHITECT ANALYST) Anatomical Region Laterality Modality Breast Bilateral Mammography Narrative 09/10/2024 4:22 PM INFORMATION AND DATA ARCHITECT ANALYST Mammogram Technique: Bilateral Digital Breast Tomosynthesis, Bilateral C-view 2D Screening mammogram. Views obtained: bilateral craniocaudal and bilateral mediolateral oblique. Computer Aided Detection was performed. Mammogram Findings: The present examination has been compared to prior imaging studies performed at [facility] on 06/23/2021, 08/21/2022 and 08/27/2023. The breasts are heterogeneously dense, which may obscure small masses. There is no suspicious abnormality in either breast. Impression: There is no mammographic evidence of malignancy. Annual screening mammography is recommended. If supplemental screening is desired, breast MRI would be recommended in this patient with heterogeneously dense breasts. OVERALL FINAL ASSESSMENT: BI-RADS CATEGORY 1: Negative. Procedure Note Dinora Dang MD - 09/10/2024 Mammogram Technique: Bilateral Digital Breast Tomosynthesis, Bilateral C-view 2D Screening mammogram. Views obtained: bilateral craniocaudal and bilateral mediolateral oblique. Computer Aided Detection was performed. Mammogram Findings: The present examination has been compared to prior imaging studies performed at [facility] on 06/23/2021, 08/21/2022 and 08/27/2023. The breasts are heterogeneously dense, which may obscure small masses. There is no suspicious abnormality in either breast. Impression: There is no mammographic evidence of malignancy. Annual screening mammography is recommended. If supplemental screeningis desired, breast MRI would be recommended in this patient with heterogeneously dense breasts. OVERALL FINAL ASSESSMENT: BI-RADS CATEGORY 1: Negative. us Self Screening Mammogram IMG MAMMO PROCEDURES Fi nal Result from Last 3 Months or Most Recently Relevant to Health Maintenance Insurance [facility] [id number] Care Teams Accounting Clerks Supervisor Relationship Specialty Start Date End Date Aracely Yanez NP PCP - General 03/07/19
--- OUTSIDE RECORDS SUMMARY | 2025-03-30 09:22 | XMS_ITS | Clinical Summary ---
Author Organization [place] [id number] [facility] Address [facility] [place] [address] Care Team Providers Care Marketing Communications Assistant Name Role Phone Aracely Yanez NP Primary Care Provider [phone] Allergies No known active allergies Medications No known medications Active Problems No known active problems Medical History Medical History Date Comments Personal history of other di seases of the circulatory system History of hypertension - (A dded by TW Conv) Family History Medical History Relation Name Comments Arthritis Father Family history of arthritis - (Added by TW Conv) Hypertension Father Family history of hypertension - (Added by TW Conv) Arthritis Mother Family history of arthritis - (Added by TW Conv) Relation Name Status Comments Father Mother Social History Tobacco Use Types Packs/Day Years Used Date Smoking Tobacco: Never Comments Unknown Sex and Gender Information Value Date Recorded Sex Assigned at Not on file Legal Sex Female 8:29 PM UX RESEARCH ASSOCIATE Gender Identity Not on file Sexual Orientation Not on file Obstetrics History Last Filed Vital Signs Vital Sign Reading Time Taken Comments Blood Pressure - - Pulse - - Temperature - - Respiratory Rate - - Oxygen Saturation - - Inhaled Oxygen Concentration - - Weight 74.8 kg (164 lb 15.9 oz) 01/01/2018 2:11 PM UX RESEARCH ASSOCIATE Height 167.6 cm (5' 6) 01/01/2018 2:11 PM UX RESEARCH ASSOCIATE Body Mass Index 26.63 01/01/2018 2:11 PM UX RESEARCH ASSOCIATE Plan of Treatment Health Maintenance Due Date Last Done Comments Cervical Cancer Screening 1971 Colon Cancer Screening-Colonoscopy 1971 Depression Screening 1971 Hepatitis C Screening 1971 Hepatitis B Screening 1989 Regular Well Visit/Exam 18-64 1989 Zoster Vaccine (1 of 2) 2021 Covid-19 Vaccine (3 - season) 2024 11/13/2020, 10/27/2020 Influenza Vaccine (Season Ended) 2025 08/21/2017, 08/05/2016, 08/13/2015, Additional history exists Breast Cancer Screening-Mammogram 09/09/2025 09/09/2024, 08/27/2023, 08/21/2022, Additional history exists DTaP/Tdap/Td Vaccine (2 - Td or Tdap) 07/19/2027 07/19/2017 Pneumococcal vaccine <65 Aged Out No longer eligible based on patient's age to complete this topic Procedures Procedure Name Priority Date/Time Associated Diagnosis Comments SCREENING MAMMOGRAM BILATERAL W AARON Schedule Routine, Read Routine (OP Routine) 09/09/2024 7:16 AM UX RESEARCH ASSOCIATE Screening mammogram, encounter for from Last 3 Months or Most Recently Relevant to Health Maintenance Results * Screening Mammogram Bilateral W Aaron (09/09/2024 7:16 AM UX RESEARCH ASSOCIATE) Anatomical Region Laterality Modality Breast Bilateral Mammography Narrative 09/10/2024 4:22 PM UX RESEARCH ASSOCIATE Mammogram Technique: Bilateral Digital Breast Tomosynthesis, Bilateral C-view 2D Screening mammogram. Views obtained: bilateral craniocaudal and bilateral mediolateral oblique. Computer Aided Detection was performed. Mammogram Findings: The present examination has been compared to prior imaging studies performed at [facility] on 06/23/2021, 08/21/2022 and 08/27/2023. The breasts [...] compared to prior imaging studies performed at [facility] on 06/23/2021, 08/21/2022 and 08/27/2023. The breasts [...] Most Recently Relevant to Health Maintenance Insurance [employer] [facility] [id number] [employer] [facility] [id number] [facility] [id number] Care Teams Marketing Communications Assistant Relationship Specialty Start Date End Date Aracely Yanez NP PCP - General 03/07/19
--- OUTSIDE RECORDS SUMMARY | 2025-03-30 09:22 | XMS_ITS | Clinical Summary ---
Author Organization [facility] Address [address] [place] [address] Care Team Providers Care Instructor Of Education Name Role Phone Crystalleonel Aracely HARLEY-HOME IMPROVEMENT INSTALLER Primary Care Provider + Abad Hudson MD Unavailable [phone] Source Comments [facility],non-owned Affiliates and Associated Physician Practices is amultiple site organization consisting of ambulatory clinics and hospital sitesin [place], [place], [place] and [place]. This disclosure is being madepursuant to the Care Everywhere program and may not contain all information available regarding this patient. Last updated 18.[facility] Allergies Active Allergy Reactions Criticality Noted Date Comments Nitrofurantoin Rash Medium 06/08/2020 Medications * Be aware that medications may not be up to date on this document. Alwaysverify current medications with the patient. latanoprost 0.005% PF (LAT) eye drops Instill 1 (one) drop into both eyes every evening Active fluticasone propionate (FLONASE) 50 MCG/ACT nasal spray Atkins 1 (one) spray into each nostril as needed Active valACYclovir (VALTREX) 1 GM tablet Take 1 (one) tablet by mouth as needed Active losartan (COZAAR) 50 MG tablet losartan 50 mg tablet TK 1 T PO QD UTD Active ALPRAZolam (XANAX) 0.5 MG tablet Take 1 (one) tablet by mouth 2 times daily as needed 0 Active traZODone (DESYREL) 50 MG tablet trazodone 50 mg tablet TAKE 1 TABLET BY MOUTH EVERY DAY AT BEDTIME Active Active Problems No known active problems Resolved Problems Problem Noted Date Diagnosed Date Resolved Date TERRA (stress urinary incontinence, female) 07/20/2020 Social History Tobacco Use Types Packs/Day Years Used Date Smoking Tobacco: Never Smokeless Tobacco: Never Tobacco Cessation:Counseling Given: Not Answered AUDIT-C Answer Date Recorded Q1: How often do you have a drink containing alc ohol? Never 07/06/2020 Average Number of Drinks Not on file 020 Frequency of Binge Drinking Not on file 11/2019 PHQ-2 Answer Date Recorded PHQ2 TOTAL SCORE 0 06/22/2023 Comments Unknown Sex and Gender Information Value Date Recorded Sex Assigned at Female 08/25/2021 9:20 AM CDT Legal Sex Female 6:12 AM ELECTRONICS SCALE TESTER Gender Identity Female 08/25/2021 9:20 AM CDT Sexual Orientation Straight 08/25/2021 9: 20 AM CDT Last Filed Vital Signs Vital Sign Reading Time Taken Comments Blood Pressure 110/66 09/09/2024 9:05 AM ELECTRONICS SCALE TESTER Pulse 75 07/07/2020 2:10 PM CDT Temperature 36.7 C (98.1 F) 07/07/2020 2:19 PM CDT Respiratory Rate 18 07/07/2020 2:19 PM CDT Oxygen Saturation 98% 07/07/2020 2:25 PM CDT Inhaled Oxygen Concentration - - Weight 83.5 kg (184 lb) 09/09/2024 9:05 AM ELECTRONICS SCALE TESTER Height 167.6 cm (5' 6) 09/09/2024 9:05 AM ELECTRONICS SCALE TESTER Body Mass Index 29.7 09/09/2024 9:05 AM ELECTRONICS SCALE TESTER Plan of Treatment Health Maintenance Due Date Last Done Comments COLOGUARD (AGES 45-75) - COLON CA SCREENING 1971 COLON MONITORING 1971 COLONOSCOPY - COLON CA SCREENING 1971 CT COLONOGRAPHY - COLON CA SCREENING 1971 Colorectal Cancer Screening 1971 FIT - COLON CA SCREENING 1971 FLEX SIG - COLON CA SCREENING 1971 LIPID TESTING 1971 HIV SCREENING 1986 HEPATITIS C SCREENING 11/21/1989 DTAP/TDAP/TD VACCINES (1 - Tdap) 1990 HEPATITIS B VACCINE (1 of 3 - 19+ 3-dose series) 1990 SCREENING FOR DIABETES 06/08/2020 PNEUMOCOCCAL VACCINE 50+ (1 of 1 - PCV) 2021 ZOSTER VACCINE (1 of 2) 2021 COVID-19 VACCINE (3 - season) 2024 11/13/2020, 10/27/2020 DEPRESSION SCREENING 11/05/2024 07/12/2023 INFLUENZA VACCINE (Season Ended) 2025 08/21/2017, 08/05/2016, 08/13/2015, Additional history exists MAMMOGRAM 08/28/2025 08/28/2023, 08/06, 08/27/2023, Additional history exists PAP with HPV 09/09/2029 09/09/2024, 05/2023, 09/01/2021 HIB VACCINE Aged Out No longer eligi ble based on patient's age to complete this topic HPV VACCINE Aged Out No longer eligi ble based on patient's age to complete this topic MENINGOCOCCAL (Group B) VACCINE SHARED DECISION-MAKING Aged Out No longer eligible based on patient's age to complete this topic MENINGOCOCCAL GROUPS A/C/Y/W VACCINE Aged Out No longer eligible based on patient's age to complete this topic Medical Devices Implanted Type Area In Flight Refueling Operator Device Identifier Shelf Expiration Date Model / Serial / Lot Sys Ureth Supp Obtryx Midurethral Trnstr Implanted:Qty: 1 on 07/07/2020 by Abad Hudson MD at [facility] 08/10/2022 [id number] / / [id number] Procedures Procedure Name Priority Date/Time Associated Diagnosis Comments PAP IG LB+HPV APTIMA Routine 09/09/2024 9:11 AM ELECTRONICS SCALE TESTER Well woman exam with routine gynecological exam MAMMOGRAM 08/28/2023 from Last 3 Months or Most Recently Relevant to Health Maintenance Results * PAP IG LB+HPV APTIMA (09/09/2024 9:11 AM ELECTRONICS SCALE TESTER) Diagnosis Comment [facility] ACCOUNT BILL Comment:NEGATIVE FOR INTRAEP ITHELIAL LESION OR MALIGNANCY. Specimen Adequacy Comment [facility] ACCOUNT BILL Comment: Satisfactory for evaluation. Endocervical and/or squamous metaplastic cells (endocervical component) are present. Clinician Provided ICD10 Comment [facility] ACCOUNT BILL Comment:Z01.419 Performed by Comment [facility] ACCOUNT BILL Comment:Daria Small, Cytot echnologist (ASCP) Comment . [facility] ACCOUNT BILL Note Comment [facility] ACCOUNT BILL Comment: The Pap smear is a screening test designed to aid in the detection of premalignant and malignant conditions of the uterine cervix. It is not a diagnostic procedure and should not be used as the sole means of detecting cervical cancer. Both false-positive and false-negative reports do occur. IGLBP CPT Code Automation Comment [facility] ACCOUNT BILL Comment: This liquid based ThinPrep(R) pap test was screened with the use of an image guided system. Human papillomavirus Aptima Negative Negative [facility] ACCOUNT BILL Comment: This nucleic acid amplification test detects fourteen high-risk HPV types (16,18,31,33,35,39,45,51,52,56,58,59,66,68) without differentiation. Pathology/Cytolog y PART OF UTERINE CERVIX / Unknown 09/09/2024 9:11 AM ELECTRONICS SCALE TESTER 09/09/2024 Comment:Cervix Release to mia anna Narrative [facility] ACCOUNT BILL - 09/16/2024 3:10 PM ELECTRONICS SCALE TESTER Performed at: 01 - [facility] [id number] Crystal Report Developer: Jane Case MD, Phone: [phone] Performed at: 02 - [facility] [id number] Crystal Report Developer: Jane Case MD, Phone: [phone] Specimen Comment: [id number] Specimen Comment: Source.............Cervix Specimen Comment: No. of containers..01 ThinPrep Vial Abad Hudson MD LAB - PATHOLOGY/CYTOLOGY ORDERA BLES Final Result [facility] ACCOUNT BILL [id number] [place] [address] * MAMMOGRAM (08/28/2023) Anatomical Region Laterality Modality Other 08/28/2023 Narrative 08/28/2023 Ordered by an unspecified provider. us Scanned Document SCANNING ONLY Final Result from Last 3 Months or Most Recently Relevant to Health Maintenance Insurance [employer] Care Teams Instructor Of Education Relationship Specialty Start Date End Date Aracely Yanez APRN-SANAM [address] [id number] PCP - General Nurse Practitioner 06/08/20 Abad Hudson MD [address] [facility] [address] [place] [address] Consulting Physician Obstetrics and Gynecology 06/08/20
--- OUTSIDE RECORDS SUMMARY | 2025-03-30 09:23 | XMS_ITS ---
[...] fluticasone propionate 0.05 MG/ACTUAT Metered Dose Nasal [place] - Co mpleted amoxicillin 500 MG Oral Capsule 2024-02-05 6T00:00:00Z - Completed - - Compl eted alprazolam 0.5 MG Oral Tablet 2023-08-24 00:00:00Z - Completed ibuprofen 800 MG Oral Tablet [id number] 0:00:00Z - Completed amoxicillin 500 MG Oral Capsule 2023-10-06 8T00:00:00Z - Completed trazodone hydrochloride 100 MG Oral Tablet - Completed alprazolam 0.5 MG Oral Tablet 2024-05-21 00:00:00Z - Completed latanoprost 0.05 MG/ML Ophth almic Solution - Completed amoxicillin 500 MG Oral Capsule 2023-11-05 3T00:00:00Z - Completed 0.5 ML semaglutide 0.5 MG/ML Auto-Injector [[employer] - Completed losartan potassium 50 MG Ora l Tablet - Completed losartan potassium 50 MG Ora l Tablet - Completed amoxicillin 875 MG Oral Tablet 2024-04-03 T00:00:00Z - Completed - - Compl eted ciprofloxacin 3 MG/ML / dexamethasone 1 MG/ML Otic Suspension - Completed fluticasone propionate 0.05 MG/ACTUAT Metered Dose Nasal [place] - [facility] mpleted latanoprost 0.05 MG/ML Ophth almic Solution - Completed alprazolam 0.5 MG Oral Tablet 2024-02-21 00:00:00Z - Completed latanoprost 0.05 MG/ML Ophth almic Solution - Completed losartan potassium 50 MG Ora l Tablet - Completed 0.5 ML semaglutide 1 MG/ML Auto-Injector [[employer] - Completed valacyclovir 1000 MG Oral Tablet 00:00:00Z - Completed Patient Care team information Name Category Status Period Participants - - Proposed period not known -
--- OUTSIDE RECORDS SUMMARY | 2025-03-30 09:24 | XMS_ITS | Continuity of Care Document ---
Author Organization [facility] Address [address] [place] [address] Phone Care Team Providers Care Machine Plug Shaper Name Role Phone Roman OD, Keenan Unavailable Unavailable Advance Directives Directive Yes / No Effective Date File Name No Information Encounters Encounter Description Practice Location Reason(s) For Visit Diagnoses Date Provider Providers Copied on Encounter [facility], [address], [place], [place], [id number], [place] tel:[phone] [facility] No Information 0-200 0 Roman OD Keenan. [address] , [address], [place], [address], [place]. tel:[phone] Family History Family Member Type Diagnosis Age At Onset No Information Payers Payer name Insurance type Covered republican ID Authoriza tion(s) No Information Social History [...]
[2025-03-30 09:30] VITALS: BP 106/78; PULSE 80; RESP 18; TEMP 36.5; O2SAT 99
--- NOTE | 2025-03-30 11:08 | ED_ITS ---
HPI - Ear Problem General Chief complaint: Ear Stated complaint: Bilateral Ear Pain Time Seen by Provider: 03/30/25 09:45 Source: patient and RN notes reviewed Mode of arrival: ambulatory Limitations: no limitations History of Present Illness HPI Narrative: 53-year-old female presents Express a complaint of bilateral ear pain for 1 week. Patient denies any recent swimming or submerging water in her ears. Patient said when her symptoms started she start taking Zyrtec and did put hydrogen peroxide and ears see that would help with her pain. Patient denies any discharge or hearing problems. Patient denies any dizziness, fevers, or any upper respiratory symptoms. Related Data Home Medications ?Medication ?Instructions ?Recorded ?Confirmed ?Last Taken ?Type multivitamin with minerals-folic 1 tablet PO DAILY 07/14/21 03/30/25 07/25/21 History acid 0.4 mg tablet latanoprost 0.005 % eye drops 1 drp EACH EYE DAILY 05/21/24 03/30/25 Unknown History trazodone 100 mg tablet 100 mg PO QHS PRN insomnia 05/21/24 03/30/25 Unknown History Allergies Allergy/AdvReac Type Severity Reaction Status Date / Time No Known Allergies Allergy Mild Verified 03/30/25 09:42 Review of Systems Review of Systems: CONSTITUTIONAL: Denies fever, chills, body aches, or sweats. EYES: Denies visual changes, redness, or discharge. ENT: Positive for rhinorrhea, congestion, sore throat. Positive for otalgia. CARDIOVASCULAR: Denies chest pain, palpitations, or edema. RESPIRATORY: Positive for cough. Negative for dyspnea. GASTROINTESTINAL: Denies abdominal pain, nausea, vomiting, or diarrhea. GENITOURINARY: Denies dysuria or hematuria. SKIN: Denies rash or itching. MUSCULOSKELETAL: Denies back pain, joint pain, or myalgia. NEUROLOGIC: Denies headache, numbness, or weakness. PSYCHIATRIC: Denies anxiety or depression. All other systems reviewed are negative, except as documented in HPI. [facility] Past Medical History Medical History Anxiety Depression Hypertension Family History Family History Father Hypertension Social History Social History (Reviewed 05/26/25 @ 11:09 by MIKO Vincent Smoking status: Never smoker Alcohol intake: former Substance use: never Substance use type: does not use Do You Feel Safe in your Home?: Yes Lack of Transportation: No Lack of Food: Never True Current Housing: I Have Housing Concerned About Future Housing: No Difficulty Paying Gas/Electric Bills: No Difficulty Paying for Meds: No Currently Unemployed: No Education: Bachelor's Degree Difficulty w/ Childcare or Family Care: No Living arrangements: with family Additional occupation/education comments: [employer] Gender identity (if verbalized by the patient): Female Spiritual care concerns: No Agree to blood products: Yes Comments At the time of my signature, I reviewed and agree with the nursing past medical, surgical, social, and family history. There is no relevant family history pertinent to the patient complaint. Exam Narrative: GENERAL: This is a well-nourished, well-developed adult, in no apparent distress. They are non ill-appearing, nontoxic appearing. HEAD: normocephalic, atraumatic. EYES: Sclera clear/white. Vision is grossly intact. Conjunctiva normal bilaterally. Extraocular movements intact. EARS: External ears normal, auditory erythematous without drainage, TMs without erythema or perforation. Hearing grossly intact. NOSE: External nose normal with no obvious nasal discharge, nasal turbinates pink without redness or swelling, no rhinorrhea. THROAT: Mucous membranes moist, posterior pharynx pink without redness or swelling, without exudate. Uvula is midline. NECK: Neck supple, non-tender without lymphadenopathy, masses or thyromegaly. CARDIOVASCULAR: Regular rate and rhythm without murmurs, gallops, or rubs. RESPIRATORY: Clear to auscultation. Breath sounds equal bilaterally. No wheezes, rales, or rhonchi. SKIN: warm, Dry, intact with no suspicious lesions or rash, good texture and turgor. NEURO: awake, alert, and oriented to person, place and time. There were no obvious focal neurologic abnormalities. EXTREMITIES: No joint tenderness, effusion, or edema noted. BACK: Nontender without deformity. Course Course Emergency Course: Portions of this record may have been created with voice recognition software Level of Care: Express Care Visit Vital Signs Vital signs: Vital Signs Temperature 97.7 F 03/30/25 09:30 Pulse Rate 80 03/30/25 09:30 Respiratory Rate 18 05/26/25 09:30 Blood Pressure 106/78 03/30/25 09:30 Pulse Oximetry 99 03/30/25 09:30 Oxygen Delivery Room Air 03/30/25 09:30 Temperature 97.7 F 03/30/25 09:30 Pulse Rate 80 03/30/25 09:30 Respiratory Rate 18 03/30/25 09:30 Blood Pressure 106/78 03/30/25 09:30 Pulse Oximetry 99 03/30/25 09:30 Oxygen Delivery Room Air 03/30/25 09:30 Medical Decision Making MDM Narrative Medical decision making narrative: Patient has otitis externa bilaterally. It is worse on the right and left. Prescribe ofloxacin ear drops. Discussed physical exam findings. Advised supportive measures and signs/symptoms to go to the ER. Pt is appropriate for outpt treatment and f/u. Differential Diagnosis Differential Diagnosis: Upper respiratory infection, viral infection, pharyngitis Vital Signs Vital Signs: Vital Signs Temperature 97.7 F 03/30/25 09:30 Pulse Rate 80 03/30/25 09:30 Respiratory Rate 18 03/30/25 09:30 Blood Pressure 106/78 03/30/25 09:30 Pulse Oximetry 99 03/30/25 09:30 Oxygen Delivery Room Air 03/30/25 09:30 Temperature 97.7 F 03/30/25 09:30 Pulse Rate 80 03/30/25 09:30 Respiratory Rate 18 03/30/25 09:30 Blood Pressure 106/78 03/30/25 09:30 Pulse Oximetry 99 03/30/25 09:30 Oxygen Delivery Room Air 03/30/25 09:30 Discharge Plan Discharge Clinical Impression: Otitis externa Qualifiers: Otitis externa type: unspecified type Chronicity: acute Laterality: bilateral Qualified Code(s): H60.503 - Unspecified acute noninfective otitis externa, bilateral Patient Disposition: Home Condition: Stable Instructions: Antibiotic Form, Ear Infection (ED) Additional Instructions: Take antibiotic drops as directed. Tylenol and ibuprofen every 8 hours as needed to reduce fever, pain Avoid water or anything into the ear until the infection has resolved. Follow up with your personal physician for further evaluation and treatment within 3-5days. If your symptoms persist, change or worsen significantly, go to the emergency department for further evaluation. Patient Language: [place] Prescriptions: New ofloxacin 0.3 % drops 10 drp EACH EAR DAILY 7 Days Qty: 10 0RF No Action latanoprost 0.005 % drops 1 drp EACH EYE DAILY trazodone 100 mg tablet 100 mg PO QHS PRN (Reason: insomnia) multivit with min-folic acid [Adult One Daily Multivitamin] 0.4 mg Tablet 1 tablet PO DAILY losartan 50 mg tablet 50 mg PO DAILY Qty: 90 3RF alprazolam 0.5 mg tablet 0.5 mg PO BID PRN (Reason: anxiety) Qty: 60 1RF Follow-up/Referrals: Aracely Yanez APRN [Primary Care Provider] - Time of Disposition: 09:56
== END 2025-03-30 09:58 | disposition home or self-care (01) ==
PROVIDERS: PCP Nurse Practitioner Adult Health
DX: H60.503 Unspecified acute noninfective otitis externa, bilateral (principal); I10 Essential (primary) hypertension; F32.A Depression, unspecified
CPT/HCPCS: 99213; G0463